=== PATIENT | female | born 1955 | race Caucasian/White ===

== ENCOUNTER → 2019-02-08 | Outpatient (CLI) | payer OTHER | LOC: M.RAD 10:24 | DX: Z12.31 Encounter for screening mammogram for malignant neoplasm of breast (principal) ==

== ENCOUNTER → 2020-05-22 | Outpatient (CLI) | payer OTHER | LOC: M.RAD 08:21 | PROVIDERS: ATTEND Family Medicine | DX: Z12.31 Encounter for screening mammogram for malignant neoplasm of breast (principal) ==

== ENCOUNTER → 2020-05-30 | Outpatient (CLI) | payer OTHER | LOC: M.ULTRA 05-28 13:30 | PROVIDERS: ATTEND Nurse Practitioner Family | DX: N60.02 Solitary cyst of left breast (principal); C50.912 Malignant neoplasm of unspecified site of left female breast ==

== ENCOUNTER → 2020-12-17 | Outpatient (CLI) | payer OTHER | LOC: M.LAB 15:50 | PROVIDERS: ATTEND Family Medicine | DX: Z01.812 Encounter for preprocedural laboratory examination (principal); Z20.822 Contact with and (suspected) exposure to COVID-19; E87.6 Hypokalemia ==

== ENCOUNTER → 2020-12-23 | Outpatient (CLI) | payer OTHER | LOC: M.RAD 12-11 12:19 | PROVIDERS: ATTEND Nurse Practitioner Family | DX: C50.912 Malignant neoplasm of unspecified site of left female breast (principal); N60.02 Solitary cyst of left breast ==